=== PATIENT | male | born 1960 | race Caucasian/White ===

== ENCOUNTER 2019-12-20 02:49 | Outpatient (CLI) | payer BC, SELFPAY ==
[2019-12-20 23:12] LABS: SARS-CoV-2 RNA PCR Negative
== END 2019-12-20 02:50 | disposition home or self-care (01) ==
LOC: ANHCOVIDDT 02:49
PROVIDERS: PCP Family Medicine; Visit Provider Internal Medicine Gastroenterology
DX: Z01.812 Encounter for preprocedural laboratory examination (principal); Z20.828 Contact with and (suspected) exposure to other viral communicable diseases
CPT/HCPCS: 87635; C9803; U0003

== ENCOUNTER 2019-12-23 01:04 | Day surgery (SDC) | payer BC, SELFPAY ==
[2019-12-13 14:56] VITALS: BMI 31.6
[2019-12-23 08:55] VITALS: BP 128/87; PULSE 63; RESP 18; TEMP 36.5; O2SAT 96; BMI 32.1
[2019-12-23] MEDS: LACTATED RINGERS 1,000 ML 150 ML IV CONT (09:06)
--- NOTE | 2019-12-23 09:13 | WPDGICN ---
Assessment and Plan Assessment and plan (1) Family history of colon cancer in mother: Code(s): Z80.0 - Family history of malignant neoplasm of digestive organs Status: Acute Assessment and Plan: Patient's mother had colon cancer. For this reason patient will undergo screening colonoscopy now and should be considered at 5 year intervals. GI Consult Note Consult date/time: 12/23/19 09:13 HPI: Jerry Chan is a 59 year old male Seen in evaluation at the request of Dr. Rios. patient presents for follow-up colonoscopy. Patient's last exam was 5 years ago. Family history is significant that his mother had colon cancer. Patient states that his current weight appetite bowel movements are normal. He denies abdominal pain he has had no bleeding. In the past he was known to have hemorrhoids. There is no other family history of polyps or other colon or rectal disease. Review of Systems Review of Systems: All systems reviewed & are unremarkable except as noted in HPI and below PMFSH Past Medical History Medical History (Updated 12/23/19 @ 09:14 by Germain Mtz MD) Chicken pox Chronic low back pain without sciatica Chronic neck and back pain Chronic systolic congestive heart failure CKD (chronic kidney disease) stage 3, GFR 30-59 ml/min Depression Essential (primary) hypertension Hypogonadism in male [place] (obstructive sleep apnea) Paralysis of left vocal cord Right tibial fracture 1991 Unspecified osteoarthritis, unspecified site Surgical History Surgical History History of discectomy & fusion L5-S1 History of lumbar fusion History of lumbar surgery x3 Family History Family History Other Carcinoma of colon Family history of alcoholism Family history of thyroid disease Hypertension Social History Social History Smoking status: Never smoker Second hand tobacco smoke exposure: No Alcohol intake: never Substance use: never Substance use type: does not use Living arrangements: with family Gender identity (if verbalized by the patient): Male Sexual Orientation (if Verbalized by the Patient): Straight or Heterosexual Spiritual care concerns: No Meds Home Medications and Allergies Home Medications Medication Instructions Recorded Confirmed Type losartan 25 mg tablet 25 mg PO DAILY 04/03/19 12/13/19 History metoprolol succinate 25 mg 25 mg PO BID 04/03/19 12/13/19 History tablet,extended release 24 hr testosterone cypionate 200 mg/mL 100 mg IM WEEKLY ml 04/03/19 12/13/19 History intramuscular oil escitalopram oxalate 20 mg tablet 20 mg PO DAILY #90 tablet 05/08/19 12/13/19 Rx hydrochlorothiazide 25 mg tablet See Rx Instructions .ROUTE 06/28/19 12/13/19 Rx .COMPLEX #90 unspecified Allergies Allergy/AdvReac Type Severity Reaction Status Date / Time gabapentin AdvReac Nausea Verified 12/23/19 08:53 Vital Signs Vital Signs - 24 hr 12/23/19 08:55 Temperature 97.7 F Pulse Rate 63 Respiratory Rate 18 Blood Pressure 128/87 Pulse Oximetry 96 Exam Narrative: Exam Narrative: Physical exam reveals patient to be alert. Vital signs stable. HEENT exam unremarkable. Lungs are clear to auscultation and percussion. Heart is without murmur or extra sounds. Abdominal exam bowel sounds are present soft nontender with no hepatosplenomegaly. Digital external rectal exam normal.
--- NOTE | 2019-12-23 09:29 | WPDANESEPPF ---
Anes - Initial Pre Proc Eval Procedure: Operation Date: 12/23/19 10:00 Proposed Procedures p Screening Colonoscopy - Germain Mtz MD Date/Time: 12/23/19 09:29 Surgeon: Germain Mtz MD Pre Op Diagnosis: neoplasm screening, fm hx colon ca Patient Data Age: 59 Gender: M Height: 6 ft Weight: 107.3 kg Last Vital Signs Temp 36.5 C 12/23/19 08:55 Pulse 63 12/23/19 08:55 Resp 18 12/23/19 08:55 BP 128/87 12/23/19 08:55 Pulse Ox 96 12/23/19 08:55 Allergies Allergy/AdvReac Type Severity Reaction Status Date / Time gabapentin AdvReac Nausea Verified 12/23/19 08:53 Home Medications Medication Instructions Recorded Confirmed Type losartan 25 mg tablet 25 mg PO DAILY 04/03/19 12/13/19 History metoprolol succinate 25 mg 25 mg PO BID 04/03/19 12/13/19 History tablet,extended release 24 hr testosterone cypionate 200 mg/mL 100 mg IM WEEKLY ml 04/03/19 12/13/19 History intramuscular oil escitalopram oxalate 20 mg tablet 20 mg PO DAILY #90 tablet 05/08/19 12/13/19 Rx hydrochlorothiazide 25 mg tablet See Rx Instructions .ROUTE 06/28/19 12/13/19 Rx .COMPLEX #90 unspecified Patient hx anesthesia problems: none Family hx anesthesia problems: none PMFSH Past Medical History Medical History Chicken pox Chronic low back pain without sciatica Chronic neck and back pain Chronic systolic congestive heart failure CKD (chronic kidney disease) stage 3, GFR 30-59 ml/min Depression Essential (primary) hypertension Hypogonadism in male [place] (obstructive sleep apnea) Paralysis of left vocal cord Right tibial fracture 1991 Unspecified osteoarthritis, unspecified site Surgical History Surgical History History of discectomy & fusion L5-S1 History of lumbar fusion History of lumbar surgery x3 Family History Family History Other Carcinoma of colon Family history of alcoholism Family history of thyroid disease Hypertension Social History Social History Smoking status: Never smoker Second hand tobacco smoke exposure: No Alcohol intake: never Substance use: never Substance use type: does not use Living arrangements: with family Gender identity (if verbalized by the patient): Male Sexual Orientation (if Verbalized by the Patient): Straight or Heterosexual Spiritual care concerns: No Anes - Eval Final PreProcedure Day of Procedure 12/23/19 09:29 Informed Consent: The patient's anesthetic plan and its attendant risks and benefits were discussed with the patient/family/POA. Questions were solicited and answers provided to the satisfaction of the patient/family/POA.
[2019-12-23 10:32] VITALS: BP 122/78; PULSE 62; RESP 18; O2SAT 96
[2019-12-23 10:42] VITALS: BP 135/72; PULSE 64; RESP 20; O2SAT 99
[2019-12-23 10:52] VITALS: BP 136/68; PULSE 66; RESP 20; O2SAT 99
== END 2019-12-23 11:05 | disposition home or self-care (01) ==
PROVIDERS: PCP Family Medicine; Visit Provider Internal Medicine Gastroenterology
PROC: 0DJD8ZZ Inspection of Lower Intestinal Tract, Via Natural or Artificial Opening Endoscopic (ICD-10-PCS; CPT 45378; principal; 2019-12-23 10:00)
DX: Z12.11 Encounter for screening for malignant neoplasm of colon (principal); K64.8 Other hemorrhoids; Z80.0 Family history of malignant neoplasm of digestive organs; I13.0 Hypertensive heart and chronic kidney disease with heart failure and stage 1 through stage 4 chronic kidney disease, or unspecified chronic kidney disease; N18.30 Chronic kidney disease, stage 3 unspecified; I50.22 Chronic systolic (congestive) heart failure; G47.33 Obstructive sleep apnea (adult) (pediatric); F32.9 Major depressive disorder, single episode, unspecified; E29.1 Testicular hypofunction; Z98.1 Arthrodesis status
CPT/HCPCS: 45378; J2704; J7120

== ENCOUNTER 2021-05-11 15:41 | Outpatient (CLI) | payer BC, SELFPAY ==
--- NOTE | ~2021-05-11 | XR_ITS ---
XR knee RT 2V DATE: 05/11/2021 17:03 INDICATION: Knee pain TECHNIQUE: Standing AP and lateral views COMPARISON: None FINDINGS: There is joint space narrowing and particular spurring involving the patellofemoral and med ial compartments consistent with severe osteoarthritis. No fracture or dislocation, periosteal reaction or bone destruction. No radiopaque intra-articular lo ose body or chondrocalcinosis is detected. IMPRESSION: Severe osteoarthritis involving the patellofemoral and medial compartments Reviewed, dictated and finalized at location A. ENTER MATE IMPRESSION: Severe osteoarthritis involving the patellofemoral and medial omaira rtments
--- NOTE | ~2021-05-11 | XR_ITS ---
XR knee LT 2V DATE: 05/11/2021 17:03 INDICATION: Knee pain TECHNIQUE: Standing AP and lateral views COMPARISON: None FINDINGS: There is chondrocalcinosis of the medial and lateral compartments. There is patellar enthesopathy at the and quadriceps and patellar tendon insertion sites. No fracture or dislocation or joint effusion. No periosteal reaction or bone destruction or radiopaqu e interarticular loose body is detected. IMPRESSION: Chondrocalcinosis of the knee joint Reviewed, dictated and finalized at location A. [employer]
== END 2021-05-11 15:42 ==
PROVIDERS: Visit Provider Nurse Practitioner Family
DX: M11.262 Other chondrocalcinosis, left knee (principal); M17.11 Unilateral primary osteoarthritis, right knee
CPT/HCPCS: 73560

== ENCOUNTER 2021-06-01 14:28 | Outpatient (CLI) | payer BC, SELFPAY ==
--- NOTE | ~2021-06-01 | MR_ITS ---
EXAMINATION: MR cervical spine wo con DATE: 06/01/2021 15:17 INDICATION: Cervicalgia TECHNIQUE: Magnetic resonance imaging (MRI) of the cervical spine was performed without intravenous c ontrast. Sequences included sagittal T2-weighted FSE, sagittal T2-weighted FS FSE, sagittal T1-weight ed FSE, axial MERGE and axial T2-weighted FSE. COMPARISON: None FINDINGS: Anterior spinal fusion from C4 through C7. There is also fusion across the C4-C6 facet joints on both the left and right. Slight reversal of the normal cervical lordosis. Vertebral body heights are nor mal. Small Schmorl's node along the superior endplate of T1 with mild underlying T1 hyperintense fibr ofatty degenerative endplate changes. T1 and T2 hyperintense hemangioma at T1. Bone marrow signal int ensity is otherwise normal. Severe disc height loss at C3-C4 and mild disc height loss at C2-C3 and C 7-T1. Cord signal intensity is normal. /Cervical soft tissues are unremarkable. The following disc le vels are specifically discussed: C2-C3: The disc does not extend beyond the endplate margin. There is mild left uncovertebral joint os teoarthritis. There is moderate right and severe left facet joint osteoarthritis. There is bilateral neural foraminal stenosis. There is no central canal stenosis. C3-C4: Right-sided predominant and osteophyte predominant posterior disc osteophyte complex. There is severe bilateral uncovertebral joint osteoarthritis. There is mild bilateral facet joint osteoarthri tis. There is moderate left and severe right neural foraminal stenosis. There is moderate central can al stenosis which measures 6 mm in AP diameter at the mid sagittal plane and with right paracentral c entered indentation of the ventral surface of the cord. C4-C5: Disc space is fused and does not project beyond the original endplate margins. The facet joint s are fused. There is mild left neural foraminal stenosis. There is mild central canal stenosis. C5-C6: Tiny osteophyte at the left paracentral region of the fused disc space. The facet joints are f used. There is no neural foraminal stenosis. There is mild central canal stenosis. C6-C7: Disc space is fused with right-sided predominant broad-based osteophyte projecting mildly beyo nd the endplate margins including at the bilateral foraminal zones, right greater than left. There is mild bilateral facet joint osteoarthritis. There is mild left and moderate right neural foraminal st enosis. There is mild central canal stenosis with indention of the right ventral surface of the cord. C7-T1: Disc is bulging. There is mild left and severe uncovertebral joint osteoarthritis. There is mi ld right and severe left facet joint osteoarthritis. There is right and mild to moderate left neural foraminal stenosis. There is mild central canal stenosis with slight flattening of the lateral surfac e of the cord. IMPRESSION: 1. Severe cervical spondylosis with C4-C7 anterior fusion and fusion across the bilateral C4-C6 facet joints. Reviewed, dictated and finalized at location A.
--- NOTE | ~2021-06-01 | MR_ITS ---
EXAMINATION: MR lumbar spine wo con DATE: 06/01/2021 15:22 INDICATION: Lumbar radiculopathy TECHNIQUE: Magnetic resonance imaging (MRI) of the lumbar spine was performed without intravenous con trast. Sequences included sagittal T2-weighted FSE, sagittal T2-weighted FS FSE, sagittal T1-weighted FSE, and axial T2-weighted FSE. COMPARISON: 04/05/2011 FINDINGS: L3 and L4 laminectomies and partial L4 laminectomy. Interval revision and extension of the prior L4-L 5 posterior spinal fusion which now spans L3-S1 with bilateral vertical rods and pedicle screws at ea ch level with the exception of removal of the prior right-sided L5 pedicle screw. Alignment is normal . Vertebral body heights are normal. T1 hyperintense hemangiomas at T12 and L1. Fibrofatty degenerati ve endplate changes at the anterior inferior endplate of L1 Marrow signal is otherwise normal. Modera te to severe disc height loss at L4-L5. Mild disc height loss at L3-L4. The conus medullaris terminat es at T12-L1. There is normal signal in the caudal spinal cord. There is some fatty muscular atrophy of the posterior paraspinal musculature at the lumbosacral junction likely related to prior surgery. Paravertebral soft tissues are otherwise unremarkable. The following disc levels are specifically dis cussed: T12-L1: Disc is minimally bulging with new small central disc protrusion. There is moderate bilateral facet joint osteoarthritis. There is no neural foraminal stenosis. There is minimal central canal st enosis. L1-L2: Disc is mildly bulging. There is mild hypertrophy of the ligamentum flavum. There is moderate bilateral facet joint osteoarthritis. There is mild bilateral neural foraminal stenosis. There is mil d central canal stenosis. L2-L3: Disc is minimally bulging with superimposed small left foraminal disc protrusion. There is hyp ertrophy of the ligamentum flavum. There is severe bilateral facet joint osteoarthritis. There is mil d to moderate bilateral neural foraminal stenosis. There is mild to moderate central canal stenosis. L3-L4: Disc is mildly bulging. Posterior spinal fusion with magnetic palmer artifact mildly limiting evaluation in the region of the neural foramina and posterior elements. There is moderate bilateral n eural foraminal stenosis. There is mild central canal stenosis despite posterior decompression with L 3 laminectomy. L4-L5: Mild right foraminal zone disc protrusion. Annular fissure centrally where the disc does not e xtend beyond the endplate margins. Posterior spinal fusion with magnetic palmer artifact mildly limit ing evaluation in the region of the neural foramina and posterior elements. There is mild bilateral n eural foraminal stenosis. Assessment on the left is somewhat limited by the magnetic field artifact. There is mild central canal stenosis. Partial L4 laminectomy. L5-S1: Annular fissure and small central right paracentral disc protrusion. Instrumented posterior sp ine fusion across the bilateral facet joints. There is mild bilateral neural foraminal stenosis. Ther e is no central canal stenosis with posterior decompression with L5 laminectomy. IMPRESSION: 1. Moderate lumbar spondylosis with interval extension of a now L3-S1 instrumented posterior spinal f usion. Reviewed, dictated and finalized at location A. IMPRESSION: 1. Moderate lumbar spondylosis with interval extension of a now L3-S1 instrumen nitin posterior spinal fusion.
== END 2021-06-01 14:29 ==
PROVIDERS: PCP Family Medicine; Visit Provider Nurse Practitioner Family
DX: M47.26 Other spondylosis with radiculopathy, lumbar region (principal); M47.892 Other spondylosis, cervical region; Z98.1 Arthrodesis status
CPT/HCPCS: 72141; 72148